=== PATIENT | male | born 1970 | race Caucasian/White ===

== ENCOUNTER 2024-03-09 06:03 | Emergency (ER) | payer OTHER, SELFPAY ==
[2024-03-09 06:07] VITALS: BP 214/122
--- NOTE | 2024-03-09 06:39 | EDRN ---
but nothing comes out. Pt states that a few drops after some time of trying. Pt denies fever. Pt states that during the day he does not notice that discomfort. Pt does not know if he has an enlarged prostrate. Denies fevers. Pt states that he is
voiding during the day in normal amounts. Urine yellow color per pt. No constipation.
[2024-03-09 06:47] VITALS: BMI 36.1
[2024-03-09 06:58] LABS: % Basophils 0.4 % (0-2); % Eosinophils 1.3 % (0-6); % Immature Granulocytes 0.2 % (0-0.5); % Lymphocytes 28.2 % (20.5-51.1); % Monocytes 9.7 % (1.7-9.3); % Neutrophils 60.2 % (42.2-75.2); Absolute Eosinophils 0.1 10^3/uL (0-0.7); Absolute Lymphocytes 1.6 10^3/uL (1.2-3.4); Absolute Monocytes 0.5 10^3/uL (0.1-0.6); Absolute Neutrophils 3.4 10^3/uL (1.4-6.5); Hematocrit 43.8 % (39.0-52.0); Hemoglobin 14.9 g/dL (13.0-18.0); Mean Corpuscular Hgb 30.6 pg (27.0-31.0); Mean Corpuscular Volume 89.9 fL (80.0-94.0); Nucleated Red Blood Cells % 0 % (-); Platelet Count 208 10^3/uL (130-400); Red Blood Cell Count 4.87 10^6/uL (4.70-6.10); Red Cell Dist. Width 12.3 % (11.5-14.5); White Blood Cell Count 5.6 10^3/uL (4.8-10.8)
--- NOTE | 2024-03-09 07:09 | ED.GENMED ---
History of Present Illness
General
Chief Complaint: Urinary Symptoms
Source: patient
Exam Limitations: none
Time Seen by Provider: 03/09/24 06:21
Nursing documentation reviewed up to this point in time: agreed with
Travel History
Have you had any contact with someone who has COVID-19?: No
Do you have any symptoms of coronavirus? Fever > 100 degrees, chills, cough, shortness of breath, sore throat, loss of taste or smell, muscle aches, or headache?: No
History of Present Illness
History of Present Illness:
Patient is a 54-year-old male who presents to the emergency department with increasing frequency and urgency as well as nocturia. Patient could not sleep during the night because of constantly having to urinate but only small amounts. Patient has
hesitancy. Patient has felt feverish and chilled. Patient denies back or abdominal pain. Patient denies any hematuria, dysuria or discharge. Patient denies any nausea, vomiting or diarrhea. Patient does notice is getting progressively worse.
During the day it does not seem to be as severe. Patient has been told his prostate is not enlarged multiple times in the past. Patient denies any recent illnesses or injuries. Patient does do [employer] but has been doing it for a year.
Past History
Past History
ED Past Medical History: HTN
Social History
Tobacco: Non-smoker
Review of Systems
Review of Systems
All Other Systems: ROS reviewed and negative except as documented in HPI and ROS
Constitutional: Reports fever and chills
EENT: Reports no symptoms
Respiratory: Reports no symptoms
ABD/GI: Reports no symptoms
: Reports frequency, difficulty voiding and urgency; Denies dysuria, flank pain, bleeding or discharge
Musculoskeletal: Reports no symptoms
Skin: Reports no symptoms
Neurological: Reports no symptoms
Hematologic/Lymphatic: Reports no symptoms
Phy Exam
Physical Exam
Physical Exam:
Physical Exam
General: No apparent distress, alert and appropriate, well nourished, well hydrated
HENT: Normocephalic, supple with no lymphadenopathy, no thyromegaly
Eyes: Clear sclera, conjuctiva without injection
Heart: Regular rhythm and rate. No S3, S4. No murmur.
Lungs: No respiratory distress, no stridor, lung sounds clear and equal bilaterally
Abdomen: Soft, nontender, no organomegaly, no CVA tenderness, BS good. Rectal shows good sphincter tone with no prostate enlargement or tenderness
Neuro: Alert and oriented x 3, CN II - XII intact, no motor focality, no cerebellar dysfunction
Skin: no rash
Psychiatric: well kept. interactive and cooperative
Extremities: No edema, cyanosis, tenderness, Good and equal peripheral pulses.
Course
Orders/Labs/Results
Orders:
Orders
03/09/24 06:46
Complete Blood Count/With Diff Urgent
Comprehensive Metabolic Panel Urgent
03/09/24 07:07
CT Abd/pel Without Iv Or Oral Urgent
Comment:
Reason For Exam: difficulty urinating with back discomfort
Tamsulosin [Flomax] 0.4 mg PO NOW STA
03/09/24 07:33
Urinalysis Reflex To Culture Urgent
Date Specimen was Collected: 03/09/24
Time Specimen was Collected: 07:28
Urine Microscopic Reflex Cult Urgent
Abnormal Lab Results
03/09/24 03/09/24
06:46 07:33
Monocytes % 9.7 H %
(1.7-9.3)
Glucose 154 H mg/dl
(70-99)
Urine Ketones Trace A
(Negative)
Ur Occult Blood Reflex 4+ A
(Negative)
Urine RBC >100 A /HPF
(0-2)
03/09/24 06:46
03/09/24 06:46
Vital Signs
Initial and Last Documented VS:
Initial Vital Signs
Temp Pulse Resp BP Pulse Ox
98 F 74 24 214/122 96
03/09/24 06:07 03/09/24 06:07 03/09/24 06:07 03/09/24 06:07 03/09/24 06:07
Last Documented Vital Signs
Temp Pulse Resp BP Pulse Ox
98 F 74 24 214/122 96
03/09/24 06:07 03/09/24 06:07 03/09/24 06:07 03/09/24 06:07 03/09/24 06:07
*Radiology
Radiology exam reviewed: radiology read reviewed (Unremarkable)
*Pulse Oximetry
Patient hypoxic: no
*EKG
Interpreted by ED Provider?: NA
*Lyric Writer Interpretation
Rate: Lyric Writer- N/A
*Critical Care Note
Total Time (30-74mins, 75-104mins- exclusive of procedures): Not Applicable
Update Note
Update Note:
Patient has hematuria. Patient has urgency and frequency with no real urine in the bladder. I have texted with urology and referred the patient for follow-up due to the hematuria. Will place the patient on Flomax. Patient is feeling somewhat
better.
ED Attending Note
-
Portions of this chart may have been created with voice recognition software.� Occasional wrong word or��sound alike� substitutions may have occurred due to the inherent limitations of voice recognition software.
Discharge Plan
Departure
Patient Disposition: Home (Routine Discharge)
Date of Disposition: 03/09/24
Time of Disposition: 09:28
Patient with high blood pressure during this ER visit?: Yes
Condition: Fair
Covid-19: Not Applicable
Discharge Problem:
Hematuria
Instructions: Blood in the Urine (Hematuria), Adult (DC), BLOOD PRESSURE
Prescriptions:
New
tamsulosin [Flomax] 0.4 mg capsule
0.4 mg PO HS Qty: 20 0RF
No Action
venlafaxine 150 mg Capsule,Extended Release 24hr
150 mg PO DAILY
lisinopril 10 mg Tablet
10 mg PO DAILY
Referrals:
Jesi Santillan MD [Family Provider] - Follow up in 5-7 days
Corey Leary MD [Active] - Call in 1-3 days for appt
Interventions
Interventions:
*Risk Screen - Suicide Last Done: 03/09/24 06:07
*General Assessment Last Done: 03/09/24 06:37
*Neglect/Abuse Screening Last Done: 03/09/24 06:07
ED- Fall Risk Assessment Last Done: 03/09/24 06:37
*ED COVID-19 Vaccine History Last Done: 03/09/24 06:37
ED-Male Genitourinary Assessment Last Done: 03/09/24 06:37
Discharge Date and Time
Print Language: IRISH
[2024-03-09 07:10] LABS: ALT (SGPT) 37 U/L (0-50); AST (SGOT) 39 U/L (17-59); Albumin 4.3 g/dl (3.5-5.0); Alkaline Phosphatase 105 U/L (38-126); Blood Urea Nitrogen 16 mg/dl (9-20); Calcium 9.1 mg/dl (8.4-10.2); Carbon Dioxide 30 mmol/L (22-30); Chloride 105 mmol/L (98-107); Estimated Creatinine Clearance 125 ml/min; Glucose 154 mg/dl (70-99); Potassium 3.7 mmol/L (3.5-5.1); Sodium 144 mmol/L (135-145); Total Bilirubin 1.1 mg/dl (0.2-1.3); eGFR > 60.00
[2024-03-09 07:30] VITALS: BP 156/81
[2024-03-09] MEDS: FLOMAX 0.400000000000000022 MG PO (07:32)
[2024-03-09 07:42] LABS: Urine Albumin Trace (Neg - Trace); Urine Bilirubin Negative (Negative); Urine Character Slightly Cloudy (Clear); Urine Color Yellow; Urine Glucose Negative (Negative); Urine Ketone Trace (Negative); Urine Leukocyte Negative (Negative); Urine Nitrite Negative (Negative); Urine Occult Blood 4+ (Negative); Urine Urobilinogen Negative (Neg - 1+)
[2024-03-09 08:40] LABS: Urine Mucus Many
[2024-03-09 08:42] LABS: Urine Red Blood Cell >100 /HPF (0-2)
[2024-03-09 08:43] LABS: Urine White Cell 0-2 /HPF (0-5)
[2024-03-09 09:30] VITALS: BP 144/77
== END 2024-03-09 09:35 | disposition home or self-care (01) ==
LOC: EMR 06:03
PROVIDERS: EMERGENCY PHYSICIAN Emergency Medicine; FAMILY PHYSICIAN Student in an Organized Health Care Education/Training Program
DX: R31.9 Hematuria, unspecified (principal); I10 Essential (primary) hypertension
CPT/HCPCS: 99284; 51798; 74176; 80053; 81003; 81015; 85025

== ENCOUNTER → 2024-04-12 12:09 | Outpatient (REF) | payer OTHER, SELFPAY | LOC: RAD 12:09 | PROVIDERS: ATTENDING PHYSICIAN Nurse Practitioner Adult Health | DX: R91.8 Other nonspecific abnormal finding of lung field (principal) | CPT/HCPCS: 71250 ==

== ENCOUNTER → 2024-05-17 08:30 | Outpatient (REF) | payer OTHER, SELFPAY | LOC: PAVMRI 08:30 | PROVIDERS: ATTENDING PHYSICIAN Internal Medicine Cardiovascular Disease; FAMILY PHYSICIAN Student in an Organized Health Care Education/Training Program | DX: Q24.5 Malformation of coronary vessels (principal) | CPT/HCPCS: 75561; 75565; A9585 ==